=== PATIENT | female | born 1995 | race African-American/Black ===

== ENCOUNTER 2018-03-01 00:24 | Emergency (ER) | payer MEDICAID ==
[~2018-03-01] VITALS: Ht 170.2 cm; Wt 87.1 kg
[~2018-03-01 00:24] MED LIST: NKM
--- NOTE | 2018-03-01 01:36 | Emergency Room Report ---
History of Present Illness General Chief Complaint: Lower Extremity Injury Source: Patient Present Illness HPI 23-year-old female with history of seizure disorder, not on any meds, reports that she bumped her right pinky toe of her foot against a table, and it hurts a lot since then earlier today, she reports the pain as constant nonradiating severe. She denies falling, and denies bleeding. Allergies: Coded Allergies: No Known Allergies (Unverified , 05/13/15) Patient History Last Menstrual Period: 02/21/18 Now: No Reviewed Nursing Documentation: PMH: Agreed; PSxH: Agreed Nursing Documentation-PMH Hx Cardiac Problems: No Hx Cancer: No Hx Gastrointestinal Problems: No Hx Seizures: Yes - started when pt was 18 years ago Review of Systems Constitutional: Denies: fever Skin: Denies: rash Hematologic/Lymphatic: Reports: no symptoms Physical Exam Vital Signs Date Time Temp Pulse Resp B/P (MAP) Pulse Ox O2 Delivery O2 Flow Rate FiO2 03/01/18 00:53 97.9 79 14 118/70 98 Room Air 97.9 General Appearance: well appearing, no apparent distress Head: normocephalic, atraumatic ENT: hearing grossly normal, normal voice Neck: full range of motion, supple Respiratory: no respiratory distress, speaking full sentences Musculoskeletal: no calf tenderness, swelling - Right great pinky toe with mild swelling and tenderness diffusely, skin intact Neurologic: alert, normal gait Psychiatric: mood/affect normal Skin: no rash Medical Decision Making Diagnostic Impression: Primary Impression: Toe sprain ER Course patient given ibuprofen, garrick tape and postop shoe for right foot, follow-up with PMD Other X-Ray Diagnostic Results Other X-Ray Diagnostic Results : X-Ray ordered: R foot # of Views/Limited Vs Complete: 3 View Indication: Pain EP Interpretation: Yes Interpretation: no dislocation, no soft tissue swelling, no fractures Impression: No acute disease Electronically Signed by: Mario Orellana MD Last Vital Signs Date Time Temp Pulse Resp B/P (MAP) Pulse Ox O2 Delivery O2 Flow Rate FiO2 03/01/18 00:53 97.9 79 14 118/70 98 Room Air 97.9 Disposition: HOME, SELF-CARE Condition: Stable Referrals: NON PHYSICIAN (PCP) MARIO ORELLANA M.D Mar 01, 2018 01:36
[2018-03-01] MEDS ORDERED: IBUPROFEN600 MG ORAL (02:05)
[2018-03-01 02:19] VITALS: BP 118/70
--- NOTE | 2018-03-01 10:40 | Diagnostic Imaging Report ---
Indication: Pain in fifth toe after bumping it well getting out of shower Technique: 3 views right foot Comparison: none Findings: No acute fractures. No dislocations. The joint spaces are preserved. Impression: Negative
== END 2018-03-01 02:19 | disposition home or self-care (01) ==
LOC: EMR 01:19
DX: S93.504A Unspecified sprain of right lesser toe(s), initial encounter (principal); W22.03XA Walked into furniture, initial encounter; Y92.9 Unspecified place or not applicable
CPT/HCPCS: 99283